=== PATIENT | male | born 1990 | race Caucasian/White ===

== ENCOUNTER 2016-12-11 07:19 | Inpatient (IN) | payer BC ==
[2016-12-11] MEDS ORDERED: SODIUM CHLORIDE 0.9% 500 ML IV STA ×2 (07:50→09:42)
[2016-12-11] MEDS ORDERED: ONDANSETRON 4 MG/2 ML VIAL IVP STA (07:50)
[2016-12-11] MEDS ORDERED: MORPHINE SULFATE 4 MG/ML SYRINGE IV STA (07:50)
[2016-12-11] MEDS: SODIUM CHLORIDE 0.9% 1,000 ML IV STA ×2 (08:01→15:29)
[2016-12-11] MEDS ORDERED: RX INFO: IV CONTRAST WAS GIVEN 1 EACH MISC MISCELLANE PRN (08:18)
[2016-12-11] MEDS ORDERED: AMPICILLIN-SULBACTAM 3 GM in SODIUM CHLORIDE 0.9% 100 ML IVPB STA (08:18)
[2016-12-11 08:20] LABS: Basophils # (A) 0.1 k/uL (0-0.2); Basophils % (A) 1 %; CH 29.3; Eosinophils # (A) 0.2 k/uL (0-0.7); Eosinophils % (A) 1 %; HDW 2.36; HGB 14.6 gm/dL (13.0-17.5); Luc % (Auto) 3; Lymphocytes # (A) 2.3 k/uL (1.0-4.8); Lymphocytes % (A) 17 %; MCH 30.3 pg (25.0-35.0); MCV 89.2 fL (80.0-100.0); Mean Platelet Volume 9.8; Monocytes # (A) 0.9 k/uL (0-1.0); Monocytes % (A) 7 %; Neutrophils # (A) 9.4 k/uL (1.3-7.7); Neutrophils % (A) 71 %; RBC 4.82 m/uL (4.30-5.90); RDW 13.2 % (11.5-15.5); WBC 13.3 k/uL (3.8-10.6); WBC (Perox) 12.56
[2016-12-11 08:31] LABS: ALT 37 U/L (21-72); AST 29 U/L (17-59); Alkaline Phosphatase 75 U/L (38-126); Amylase 44 U/L (30-110); Anion Gap 12 mmol/L; Blood Urea Nitrogen 20 mg/dL (9-20); Calcium 9.4 mg/dL (8.4-10.2); Carbon Dioxide 20 mmol/L (22-30); Chloride 110 mmol/L (98-107); Glucose 99 mg/dL (74-99); Non-African American GFR(MDRD) >60 (>60 ml/min/1.73 sqM); Potassium 5.3 mmol/L (3.5-5.1); Sodium 142 mmol/L (137-145); Total Bilirubin 0.8 mg/dL (0.2-1.3); Total Protein 6.8 g/dL (6.3-8.2)
--- NOTE | 2016-12-11 08:32 | ED ---
General Adult HPI - General Chief complaint: Abdominal Pain Stated complaint: sent Time Seen by Provider: 12/11/16 07:32 Source: patient, RN notes reviewed, old records reviewed Mode of arrival: ambulatory Limitations: no limitations - History of Present Illness Initial comments: This is a 26-year-old male here for evaluation of bowel pain. Severe anterior abdominal pain. About 3 days symbols urgent care and family doctor's office. Scheduled for surgery consult. Patient unsure what causes. No prior history of medical history, no prior surgical history. Patient states he does appear to have drainage from his umbilical area. He states it smells fall, stool, plus. No fevers. He does have significant erythema and redness and warmth surrounding the area - Related Data Home Medications Medication Instructions Recorded Confirmed Clindamycin HCl [Cleocin] 300 mg PO Q6HR 12/11/16 12/11/16 Sulfamethox-Tmp 800-160Mg [Bactrim 1 tab PO Q12HR 12/11/16 12/11/16 DS 800-160 mg] Allergies Allergy/AdvReac Type Severity Reaction Status Date / Time No Known Allergies Allergy Verified 12/11/16 07:27 Review of Systems ROS Statement: Those systems with pertinent positive or pertinent negative responses have been documented in the HPI. ROS Other: All systems not noted in ROS Statement are negative. Past Medical History Past Medical History: No Reported History History of Any Multi-Drug Resistant Organisms: None Reported Past Surgical History: Ear Surgery Past Psychological History: No Psychological Hx Reported Smoking Status: Current every day smoker Past Alcohol Use History: Occasional Past Drug Use History: None Reported General Exam Limitations: no limitations General appearance: alert, in no apparent distress Head exam: Present: atraumatic, normocephalic, normal inspection Eye exam: Present: normal appearance, PERRL, EOMI. Absent: scleral icterus, conjunctival injection, periorbital swelling ENT exam: Present: normal exam, mucous membranes moist Neck exam: Present: normal inspection. Absent: tenderness, meningismus, lymphadenopathy Respiratory exam: Present: normal lung sounds bilaterally. Absent: respiratory distress, wheezes, rales, rhonchi, stridor Cardiovascular Exam: Present: regular rate, normal rhythm, normal heart sounds. Absent: systolic murmur, diastolic murmur, rubs, gallop, clicks GI/Abdominal exam: Present: soft, normal bowel sounds, other (Purulent drainage from abdomen, foul-smelling, surrounding cellulitis with warmth). Absent: distended, tenderness, guarding, rebound, rigid Extremities exam: Present: normal inspection, full ROM, normal capillary refill. Absent: tenderness, pedal edema, joint swelling, calf tenderness Back exam: Present: normal inspection Neurological exam: Present: alert, oriented X3, CN II-XII intact Psychiatric exam: Present: normal affect, normal mood Skin exam: Present: warm, dry, intact, normal color. Absent: rash Course Vital Signs 12/11/16 12/11/16 07:23 09:38 Temperature 97.3 F L 98.3 F Pulse Rate 90 56 L Respiratory 18 17 Rate Blood Pressure 140/77 129/59 O2 Sat by Pulse 100 99 Oximetry - Reevaluation(s) Reevaluation #1: 12/11/16 09:42 General surgery sees patient in emergency room, take patient's operating room Reevaluation #2: 12/11/16 09:42 Patient has adequate pain control at this time. Medical Decision Making - Medical Decision Making 26-year-old year for evaluation of purulent umbilical drainage. Patient to be admitted and taken to operating room regarding infectious hernia, incarcerated hernia. IV antibiotics, pain control, IV resuscitation and surgical treatment - Lab Data Result diagrams: 12/11/16 07:51 12/11/16 07:51 Lab Results 12/11/16 12/11/16 12/11/16 Range/Units 07:51 07:51 07:51 WBC 13.3 H (3.8-10.6) k/uL RBC 4.82 (4.30-5.90) m/uL Hgb 14.6 (13.0-17.5) gm/dL Hct 43.0 (39.0-53.0) % MCV 89.2 (80.0-100.0) fL MCH 30.3 (25.0-35.0) pg MCHC 34.0 (31.0-37.0) g/dL RDW 13.2 (11.5-15.5) % Plt Count 182 (150-450) k/uL Neutrophils % 71 % Lymphocytes % 17 % Monocytes % 7 % Eosinophils % 1 % Basophils % 1 % Neutrophils # 9.4 H (1.3-7.7) k/uL Lymphocytes # 2.3 (1.0-4.8) k/uL Monocytes # 0.9 (0-1.0) k/uL Eosinophils # 0.2 (0-0.7) k/uL Basophils # 0.1 (0-0.2) k/uL Sodium 142 (137-145) mmol/L Potassium 5.3 H (3.5-5.1) mmol/L Chloride 110 H (98-107) mmol/L Carbon Dioxide 20 L (22-30) mmol/L Anion Gap 12 mmol/L BUN 20 (9-20) mg/dL Creatinine 1.12 (0.66-1.25) mg/dL Est GFR (MDRD) Af Amer >60 (>60 ml/min/1.73 sqM) Est GFR (MDRD) Non-Af >60 (>60 ml/min/1.73 sqM) Glucose 99 (74-99) mg/dL Plasma Lactic Acid Marito 1.1 (0.7-2.0) mmol/L Calcium 9.4 (8.4-10.2) mg/dL Total Bilirubin 0.8 (0.2-1.3) mg/dL AST 29 (17-59) U/L ALT 37 (21-72) U/L Alkaline Phosphatase 75 (38-126) U/L Total Protein 6.8 (6.3-8.2) g/dL Albumin 4.0 (3.5-5.0) g/dL Amylase 44 (30-110) U/L Lipase 73 (23-300) U/L Urine Color Urine Appearance (Clear) Urine pH (5.0-8.0) Urine Protein (Negative) Urine Glucose (UA) (Negative) Urine Ketones (Negative) Urine Blood (Negative) Urine Nitrite (Negative) Urine Bilirubin (Negative) Urine Urobilinogen (<2.0) mg/dL Ur Leukocyte Esterase (Negative) 12/11/16 Range/Units 09:30 WBC (3.8-10.6) k/uL RBC (4.30-5.90) m/uL Hgb (13.0-17.5) gm/dL Hct (39.0-53.0) % MCV (80.0-100.0) fL MCH (25.0-35.0) pg MCHC (31.0-37.0) g/dL RDW (11.5-15.5) % Plt Count (150-450) k/uL Neutrophils % % Lymphocytes % % Monocytes % % Eosinophils % % Basophils % % Neutrophils # (1.3-7.7) k/uL Lymphocytes # (1.0-4.8) k/uL Monocytes # (0-1.0) k/uL Eosinophils # (0-0.7) k/uL Basophils # (0-0.2) k/uL Sodium (137-145) mmol/L Potassium (3.5-5.1) mmol/L Chloride (98-107) mmol/L Carbon Dioxide (22-30) mmol/L Anion Gap mmol/L BUN (9-20) mg/dL Creatinine (0.66-1.25) mg/dL Est GFR (MDRD) Af Amer (>60 ml/min/1.73 sqM) Est GFR (MDRD) Non-Af (>60 ml/min/1.73 sqM) Glucose (74-99) mg/dL Plasma Lactic Acid Marito (0.7-2.0) mmol/L Calcium (8.4-10.2) mg/dL Total Bilirubin (0.2-1.3) mg/dL AST (17-59) U/L ALT (21-72) U/L Alkaline Phosphatase (38-126) U/L Total Protein (6.3-8.2) g/dL Albumin (3.5-5.0) g/dL Amylase (30-110) U/L Lipase (23-300) U/L Urine Color Yellow Urine Appearance Clear (Clear) Urine pH 6.0 (5.0-8.0) Urine Protein Negative (Negative) Urine Glucose (UA) Negative (Negative) Urine Ketones Negative (Negative) Urine Blood Negative (Negative) Urine Nitrite Negative (Negative) Urine Bilirubin Negative (Negative) Urine Urobilinogen <2.0 (<2.0) mg/dL Ur Leukocyte Esterase Negative (Negative) - Radiology Data Radiology results: report reviewed (CT pelvis shows positive hernia), image reviewed Disposition Clinical Impression: Hernia with strangulation, Abdominal pain Disposition: ADMITTED IP TO THIS [facility] Condition: Fair Referrals: Fercho Avalos MD [Primary Care Provider] - 1-2 days
--- NOTE | 2016-12-11 09:17 | CT ---
EXAMINATION TYPE: CT abdomen pelvis w con DATE OF EXAM: 12/11/2016 COMPARISON: NONE HISTORY: umbilical hernia CT DLP: 2044.6 mGycm CONTRAST: CT scan of the abdomen and pelvis is performed without Oral Contrast and with IV Contrast, patient in jected with 100 mL of Omnipaque 300. FINDINGS: LUNG BASES-: No visible nodule. No infiltrate. LIVER/GB: No calcified gallstones. No space occupying hepatic lesion. Biliary tree is of normal ca liber. PANCREAS: No inflammation. No distinct mass. SPLEEN: No splenic enlargement. 1.6 cm splenic cyst superior splenic pole. ADRENALS: No nodule. No thickening. KIDNEYS/BLADDER: No hydronephrosis. No nephrolithiasis. No disctinct renal mass. Urinary bladder g rossly unremarkable. BOWEL: Normal appendix. Normal bowel caliber. No inflammation. GENITAL ORGANS: No gross abnormality. LYMPH NODES: No greater than 1cm abdominal or pelvic lymph nodes are appreciated. AORTA: No significant abnormality. OSSEOUS STRUCTURES: No significant abnormality is seen. OTHER: Fat-containing umbilical hernia with internal fluid and phlegmon attenuation with infection no t excluded. Measurement is approximately 5.3 x 4.9 cm There is surrounding inflammatory change. No ev idence for incarcerated bowel. IMPRESSION: 1. Fat-containing umbilical hernia with internal fluid and phlegmon attenuation. There is surrounding inflammatory change. No evidence for incarcerated bowel.
[2016-12-11] MEDS ORDERED: ACETAMINOPHEN IV (For NPO) 1,000 MG in EMPTY BAG 1 BAG IVPB STA (09:36)
[2016-12-11 09:41] LABS: Appearance,Urine Clear (Clear); Bilirubin,Urine Negative (Negative); Glucose,Urine (UA) Negative (Negative); Ketones,Urine Negative (Negative); Leukocyte Esterase,Urine Negative (Negative); Nitrite,Urine Negative (Negative); Protein,Urine Negative (Negative); UA Billing (MACRO vs. MICRO) CHEM; Urobilinogen,Urine <2.0 mg/dL (<2.0)
[2016-12-11] MEDS ORDERED: SODIUM CHLORIDE 0.9% 1,000 ML IV STA (09:42)
[2016-12-11] MEDS ORDERED: IV VANCOMYCIN PER PHARMACY 1 EACH MISC MISCELLANE PRN ×2 (09:42→10:28)
[2016-12-11 09:54] LABS: Specific Gravity,Urine >1.050 (1.001-1.035)
--- NOTE | 2016-12-11 10:03 | P.GSHP ---
History of Present Illness H&P Date: 12/11/16 Chief Complaint: Redness and purulent drainage from the umbilius 26 years old male noticed a bulge in the umbilicus area 4 days ago. He has noticed increased redness and purulent drainage for 1 day. He reports fever. Regular bowel movements. No nausea or vomiting. - Review of Systems Comment: Constitutional: Denies fever, weight loss or loss of appetite HEENT: No difficulty in vision or hearing. Denies dysphagia. Cardiovascular: Denies chest pain, palpitations, dizziness, shortness of breath. Respiratory: No cough or SOB Gastrointestinal: No recent change in bowel habits, no abdominal pain, no nausea or vomiting. Integumentary:Increasing redness and cellulitis of abdominal wall Genitourinary: No urinary incontinence, hematuria or dysuria Neurologic: No seizures, denies weakness in upper or lower extremities Psychiatry: No history of depression, no suicidal ideation, no anxiety or psychosis MSK: No joint pain or backache Past Medical History Past Medical History: No Reported History History of Any Multi-Drug Resistant Organisms: None Reported Past Surgical History: Ear Surgery Past Psychological History: No Psychological Hx Reported Smoking Status: Current every day smoker Past Alcohol Use History: Occasional Past Drug Use History: None Reported Medications and Allergies Home Medications Medication Instructions Recorded Confirmed Type Clindamycin HCl [Cleocin] 300 mg PO Q6HR 12/11/16 12/11/16 History Sulfamethox-Tmp 800-160Mg [Bactrim 1 tab PO Q12HR 12/11/16 12/11/16 History DS 800-160 mg] Allergies Allergy/AdvReac Type Severity Reaction Status Date / Time No Known Allergies Allergy Verified 12/11/16 07:27 Surgical - Exam Vital Signs Temp Pulse Resp BP Pulse Ox 97.3 F L 90 18 140/77 100 12/11/16 07:23 12/11/16 07:23 12/11/16 07:23 12/11/16 07:23 12/11/16 07:23 General: Patient is alert and oriented to time, place and person and cooperative with exam. HEENT: No pallor, no icterus, Chest: Bilateral equal breath sounds present. No wheezes, no crackles. Cardiovascular: Regular rate and rhythm. Abdomen: Cellulitis involving the umbilicus and surrounding abdominal wall. Purulent drainage from the umbilicus with a protuberant bulge. Integumentary: Bilateral lower extremity chronic venous dermatitis. No active ulcers or discharge. Neurologic: Cranial nerves II-XII intact. Strength upper and lower extremities 5/5. No focal neurologic deficits. Gait is normal. Psychiatric: No anxiety or psychosis. Results - Labs 12/11/16 07:51 12/11/16 07:51 Abnormal Lab Results - Last 24 Hours (Table) 12/11/16 12/11/16 12/11/16 Range/Units 07:51 07:51 09:30 WBC 13.3 H (3.8-10.6) k/uL Neutrophils # 9.4 H (1.3-7.7) k/uL Potassium 5.3 H (3.5-5.1) mmol/L Chloride 110 H (98-107) mmol/L Carbon Dioxide 20 L (22-30) mmol/L Ur Specific [place] >1.050 H (1.001-1.035) Diabetes panel 12/11/16 Range/Units 07:51 Sodium 142 (137-145) mmol/L Potassium 5.3 H (3.5-5.1) mmol/L Chloride 110 H (98-107) mmol/L Carbon Dioxide 20 L (22-30) mmol/L BUN 20 (9-20) mg/dL Creatinine 1.12 (0.66-1.25) mg/dL Glucose 99 (74-99) mg/dL Calcium 9.4 (8.4-10.2) mg/dL AST 29 (17-59) U/L ALT 37 (21-72) U/L Alkaline Phosphatase 75 (38-126) U/L Total Protein 6.8 (6.3-8.2) g/dL Albumin 4.0 (3.5-5.0) g/dL Calcium panel 12/11/16 Range/Units 07:51 Calcium 9.4 (8.4-10.2) mg/dL Albumin 4.0 (3.5-5.0) g/dL Pituitary panel 12/11/16 Range/Units 07:51 Sodium 142 (137-145) mmol/L Potassium 5.3 H (3.5-5.1) mmol/L Chloride 110 H (98-107) mmol/L Carbon Dioxide 20 L (22-30) mmol/L BUN 20 (9-20) mg/dL Creatinine 1.12 (0.66-1.25) mg/dL Glucose 99 (74-99) mg/dL Calcium 9.4 (8.4-10.2) mg/dL Adrenal panel 12/11/16 Range/Units 07:51 Sodium 142 (137-145) mmol/L Potassium 5.3 H (3.5-5.1) mmol/L Chloride 110 H (98-107) mmol/L Carbon Dioxide 20 L (22-30) mmol/L BUN 20 (9-20) mg/dL Creatinine 1.12 (0.66-1.25) mg/dL Glucose 99 (74-99) mg/dL Calcium 9.4 (8.4-10.2) mg/dL Total Bilirubin 0.8 (0.2-1.3) mg/dL AST 29 (17-59) U/L ALT 37 (21-72) U/L Alkaline Phosphatase 75 (38-126) U/L Total Protein 6.8 (6.3-8.2) g/dL Albumin 4.0 (3.5-5.0) g/dL - Imaging CT scan - abdomen: other (CT scan of the abdomen and pelvis reviewed. Large fluid collection extending from the umbilicus in the subcutaneous plane. There is a fat-containing umbilical hernia also noted. No communications seen with the bowel however fistula cannot be excluded) Assessment and Plan (1) Abdominal wall cellulitis Status: Acute (2) Incarcerated umbilical hernia Status: Acute (3) Abdominal pain Status: Acute (4) Morbid obesity with BMI of 40.0-44.9, adult Status: Acute Plan: 1. 26 years old male with incarcerated umbilical hernia with surrounding cellulitis and purulent drainage. Patient has leukocytosis at presentation. Informed consent obtained for open exploration, drainage of abdominal wall abscess and repair of umbilical hernia defect without mesh. Since this is an infected area, I would not repair the hernia with mesh. The risks, benefits and potential complications explained to the patient. 2. IV antibiotics-Unasyn and vancomycin 3. Bilateral SCDs 4. Heparin 5000 units subcu injection 1
[2016-12-11] MEDS: ACETAMINOPHEN IV (For NPO) 1,000 MG in EMPTY BAG 1 BAG IVPB STA ×2 (11:05→11:20)
[2016-12-11] MEDS ORDERED: MIDAZOLAM 2 MG/2 ML VIAL ONE (11:27)
[2016-12-11] MEDS ORDERED: HYDROmorphone (PF) 1 MG/ML ONE (11:27)
[2016-12-11] MEDS ORDERED: SUCCINYLCHOLINE CHLORIDE 100 MG/5 ML SYR IV ONE (11:27)
[2016-12-11] MEDS ORDERED: PROPOFOL 10 MG/ML 20 ML VIAL IV ONE (11:27)
[2016-12-11] MEDS ORDERED: fentaNYL (PF) 50 MCG/ML 2 ML AMP ONE (11:27)
[2016-12-11] MEDS: VANCOMYCIN 2,000 MG in SODIUM CHLORIDE 0.9% 500 ML IVPB SCH ×2 (11:55→21:37)
[2016-12-11] MEDS ORDERED: SODIUM CHLORIDE 0.9% 1,000 ML IV ONE (11:55)
--- NOTE | 2016-12-11 12:30 | P.OP ---
Date of Procedure: 12/11/16 Preoperative Diagnosis: Incarcerated umbilical hernia Cellulitis and abscess of anterior abdominal wall Postoperative Diagnosis: Umbilical abscess with cellulitis Procedure(s) Performed: Incision and drainage of deep umbilical abscess. Sharp excisional debridement of necrotic skin and subcutaneous fat in the umbilicus Implants: NA Anesthesia: MIGUELITOA, local Surgeon: Jaylyn Lala Pathology: other Condition: stable Disposition: PACU Indications for Procedure: 26 years old male presents with umbilical bulge with increasing drainage and surrounding redness. Computed tomography scan shows a fat-containing umbilical hernia with subcutaneous fluid collection consistent with abscess. No communication with the bowel. Informed consent obtained and patient elected to undergo open umbilical hernia repair and evacuation of abscess and all indicated procedure. Operative Findings: 4 x 6 x 3 cm abscess cavity in the periumbilical area with foul-smelling purulent pus. The fascia was intact. No definite hernia identified Description of Procedure: The patient was brought to the operating room and placed in supine position with both arms out to anesthesia with endotracheal intubation was performed as per anesthesia team. A timeout was performed to verify correct patient and correct procedure. There was purulent discharge from the umbilicus with surrounding cellulitis. Aerobic and anaerobic cultures were sent. Using #15 scalpel blade, sharp excisional debrident of necrotic skin and subcutaneous tissue was performed.A 4 cm x 3 cm skin incision was made incorporating the umbilicus. This was deepened to the subcu tissues tissue. 10 mL of daniel pus evacuated. Some fresh bleeding noted which was controlled using Bovie electrocautery. There was no umbilical hernia defect identified. There is no bowel visible in the feet. The post debridement measurement was 4 x 6 x 3 cm.The cavity was copiously irrigated with half-strength hydrogen peroxide. Skin jomar were applied except for the proximal part of the incision. Iodoform packing was performed. Patient tolerated the procedure well and was taken to postanesthesia care unit in stable condition. The sponge, instrument and needle count were correct 2
[2016-12-11] MEDS: HEPARIN SODIUM,PORCINE 5,000 UNIT/ML 1 ML VIAL SQ SCH (15:30)
[2016-12-11] MEDS: HYDROmorphone 1 MG/ML 1 ML SYRINGE IVP PRN ×3 (15:30→23:22)
[2016-12-11 15:49] VITALS: BMI 40.3
[2016-12-11] MEDS: AMPICILLIN-SULBACTAM 3 GM in SODIUM CHLORIDE 0.9% 100 ML IVPB SCH (18:00)
[2016-12-12] MEDS: AMPICILLIN-SULBACTAM 3 GM in SODIUM CHLORIDE 0.9% 100 ML IVPB SCH ×4 (00:47→18:52)
[2016-12-12] MEDS: HEPARIN SODIUM,PORCINE 5,000 UNIT/ML 1 ML VIAL SQ SCH ×3 (00:48→17:27)
[2016-12-12] MEDS: HYDROmorphone 1 MG/ML 1 ML SYRINGE IVP PRN ×3 (03:32→12:41)
[2016-12-12 07:31] LABS: Basophils % (A) 1 %; CH 29.3; CHCM 33.1; Eosinophils # (A) 0.1 k/uL (0-0.7); Eosinophils % (A) 1 %; HCT 40.7 % (39.0-53.0); HDW 2.47; HGB 13.6 gm/dL (13.0-17.5); Luc # (Auto) 0.24; Luc % (Auto) 3; Lymphocytes % (A) 22 %; MCH 29.7 pg (25.0-35.0); MCHC 33.4 g/dL (31.0-37.0); MCV 88.7 fL (80.0-100.0); Mean Platelet Volume 9.6; Monocytes # (A) 0.5 k/uL (0-1.0); Monocytes % (A) 5 %; Neutrophils # (A) 6.3 k/uL (1.3-7.7); Neutrophils % (A) 69 %; RBC 4.59 m/uL (4.30-5.90); RDW 13.3 % (11.5-15.5); WBC 9.1 k/uL (3.8-10.6); WBC (Perox) 8.82
[2016-12-12 07:47] LABS: Anion Gap 10 mmol/L; Blood Urea Nitrogen 9 mg/dL (9-20); Calcium 8.8 mg/dL (8.4-10.2); Carbon Dioxide 25 mmol/L (22-30); Chloride 104 mmol/L (98-107); Glucose 86 mg/dL (74-99); Non-African American GFR(MDRD) >60 (>60 ml/min/1.73 sqM); Potassium 4.3 mmol/L (3.5-5.1); Sodium 139 mmol/L (137-145)
[2016-12-12] MEDS: VANCOMYCIN 2,000 MG in SODIUM CHLORIDE 0.9% 500 ML IVPB SCH ×2 (08:22→22:06)
--- NOTE | 2016-12-12 10:06 | P.CONS ---
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 A couple months ago, patient had pain and redness at the area and he was placed on Bactroban and antibiotics and this completely cleared up. On Monday, he was straining at work and didn't think anything of it until Monday when he started having pain in the umbilical area. On Monday, the pain became severe and he went to the clinic and was diagnosed with a yeast infection and put on Diflucan. On , the area had puffed up and was very visible that was abnormality or abscess at the site. On Monday, the pain continued to worsen and he started having yellow crusty drainage. He then called his primary care physician and got into the office and was given [address] Avalos tried to set him up with a surgeon but the earliest appointment was Monday. He was instructed to take 2 antibiotics at home and if he worsened to go to the emergency center. On Monday morning when he got up there was a rancid smell from the area and the yellow drainage has now brown. He came into the emergency center for evaluation. He was found to be afebrile with a white count of 13.3 which has improved to 9.1. Urinalysis was negative. He underwent a CAT scan of the abdomen and pelvis which showed a fat containing umbilical hernia with internal fluid and phlegmon. Patient underwent I&D of a deep umbilical abscess with Dr. Lala yesterday afternoon. He has been placed on Unasyn. He is currently on clear liquid diet. He has not passed gas or had a bowel movement. He has been ambulating in the hallway. Patient states he is uncomfortable with a pain level of 5-6 out of 10. Blood culture, wound cultures and urine culture in progress. Review of Systems All systems: negative Constitutional: Denies chills, Denies fever Eyes: denies blurred vision, denies pain Ears, nose, mouth and throat: Denies headache, Denies sore throat Cardiovascular: Denies chest pain, Denies shortness of breath Respiratory: Denies cough Gastrointestinal: Reports abdominal pain, Denies diarrhea, Denies nausea, Denies vomiting Musculoskeletal: Denies myalgias Integumentary: Reports wounds, Denies pruritus, Denies rash Neurological: Denies numbness, Denies weakness Psychiatric: Denies anxiety, Denies depression Endocrine: Denies fatigue, Denies weight change Past Medical History Past Medical History: No Reported History History of Any Multi-Drug Resistant Organisms: None Reported Past Surgical History: Ear Surgery Past Psychological History: No Psychological Hx Reported Smoking Status: Never smoker Past Alcohol Use History: Occasional Additional Past Alcohol Use History / Comment(s): Patient is a lifelong nonsmoker. He denies any medical marijuana, marijuana, street drug use. He drank alcohol occasionally. He lives at home with his girlfriend and there are 2 dogs and 1 cat and fish in the home. Past Drug Use History: None Reported Medications and Allergies Home Medications Medication Instructions Recorded Confirmed Type Clindamycin HCl [Cleocin] 300 mg PO Q6HR 12/11/16 12/11/16 History Clotrimazole/Betamethasone Dip 1 applic TOPICAL BID 12/11/16 12/11/16 History [Lotrisone Cream] Fluconazole [Diflucan] 200 mg PO Q7D 12/11/16 12/11/16 History Sulfamethox-Tmp 800-160Mg [Bactrim 1 tab PO Q12HR 12/11/16 12/11/16 History DS 800-160 mg] Allergies Allergy/AdvReac Type Severity Reaction Status Date / Time No Known Allergies Allergy Verified 12/11/16 12:23 Physical Exam Vitals: Vital Signs Temp Pulse Pulse Pulse Resp BP BP 12/12/16 04:03 97.9 F 62 16 115/74 12/11/16 19:27 98.1 F 78 16 135/74 12/11/16 17:20 89 18 12/11/16 17:19 98.5 F 89 18 113/87 12/11/16 16:30 64 114/61 12/11/16 16:15 71 119/63 12/11/16 16:00 70 119/62 12/11/16 15:45 65 117/57 12/11/16 15:30 66 119/59 12/11/16 15:15 62 122/63 12/11/16 15:00 70 126/61 12/11/16 14:45 66 122/58 12/11/16 14:30 96.7 F L 72 16 119/56 12/11/16 13:10 82 16 143/87 12/11/16 12:55 85 16 145/87 12/11/16 12:40 99 F 89 16 149/75 12/11/16 10:44 98.6 F 87 18 116/64 12/11/16 10:00 97.8 F 58 L 19 140/61 12/11/16 09:38 98.3 F 56 L 17 129/59 Pulse Ox 12/12/16 04:03 97 12/11/16 19:27 99 12/11/16 17:20 12/11/16 17:19 99 12/11/16 16:30 12/11/16 16:15 12/11/16 16:00 12/11/16 15:45 12/11/16 15:30 12/11/16 15:15 12/11/16 15:00 12/11/16 14:45 12/11/16 14:30 96 12/11/16 13:10 97 12/11/16 12:55 99 12/11/16 12:40 99 12/11/16 10:44 99 12/11/16 10:00 100 12/11/16 09:38 99 Intake and Output 12/11/16 12/12/16 12/12/16 22:59 06:59 14:59 Intake Total 1946 1929 Output Total 800 700 Balance 1147 1230 Intake: Intake, IV Titration 267 600 Amount Ampicillin-Sulbactam 3 gm 100 100 In Sodium Chloride 0.9% 100 ml @ 100 mls/hr IVPB Q6HR SHANN[facility] Rx#:[id number] Vancomycin 2,000 mg In 167 500 Sodium Chloride 0.9% 500 ml @ 167 mls/hr IVPB Q12HR SHANNEN Rx#:[id number] Oral 1680 1330 Output: Urine 800 700 Other: Voiding Method Toilet # Voids 3 1 1 Weight 127.459 kg Gen: This is a morbidly obese 26-year-old male. He is sitting up in bed and appears to be comfortable. HEENT: Head is atraumatic, normocephalic. Pupils equal, round. Sclerae is anicteric. Conjunctiva pink. Mucous membranes of the mouth are slightly dry. No thrush noted. NECK: Supple. No JVD. No lymphadenopathy. No thyromegaly. LUNGS: Clear to auscultation. No wheezes or rhonchi. No intercostal retractions. HEART: Regular rate and rhythm. No murmur. ABDOMEN: Soft. Bowel sounds are present. No masses. Mild tenderness. A dressing saturated with serosanguineous fluid in the mid abdomen. There is surrounding erythema going towards the right groin. EXTREMITIES: No pedal edema. No calf tenderness. NEUROLOGICAL: Patient is awake, alert and oriented x3. Cranial nerves 2 through 12 are grossly intact. Results Results: Laboratory Results WBC 9.1 k/uL (3.8-10.6) 12/12/16 07:08 RBC 4.59 m/uL (4.30-5.90) 12/12/16 07:08 Hgb 13.6 gm/dL (13.0-17.5) 12/12/16 07:08 Hct 40.7 % (39.0-53.0) 12/12/16 07:08 MCV 88.7 fL (80.0-100.0) 12/12/16 07:08 MCH 29.7 pg (25.0-35.0) 12/12/16 07:08 MCHC 33.4 g/dL (31.0-37.0) 12/12/16 07:08 RDW 13.3 % (11.5-15.5) 12/12/16 07:08 Plt Count 174 k/uL (150-450) 12/12/16 07:08 Neutrophils % 69 % 12/12/16 07:08 Lymphocytes % 22 % 12/12/16 07:08 Monocytes % 5 % 12/12/16 07:08 Eosinophils % 1 % 12/12/16 07:08 Basophils % 1 % 12/12/16 07:08 Neutrophils # 6.3 k/uL (1.3-7.7) 12/12/16 07:08 Lymphocytes # 2.0 k/uL (1.0-4.8) 12/12/16 07:08 Monocytes # 0.5 k/uL (0-1.0) 12/12/16 07:08 Eosinophils # 0.1 k/uL (0-0.7) 12/12/16 07:08 Basophils # 0.0 k/uL (0-0.2) 12/12/16 07:08 Sodium 139 mmol/L (137-145) 12/12/16 07:08 Potassium 4.3 mmol/L (3.5-5.1) 12/12/16 07:08 Chloride 104 mmol/L (98-107) 12/12/16 07:08 Carbon Dioxide 25 mmol/L (22-30) 12/12/16 07:08 Anion Gap 10 mmol/L 12/12/16 07:08 BUN 9 mg/dL (9-20) 12/12/16 07:08 Creatinine 0.96 mg/dL (0.66-1.25) 12/12/16 07:08 Est GFR (MDRD) Af Amer >60 (>60 ml/min/1.73 sqM) 12/12/16 07:08 Est GFR (MDRD) Non-Af >60 (>60 ml/min/1.73 sqM) 12/12/16 07:08 Glucose 86 mg/dL (74-99) 12/12/16 07:08 Plasma Lactic Acid Marito 1.1 mmol/L (0.7-2.0) 12/11/16 07:51 Calcium 8.8 mg/dL (8.4-10.2) 12/12/16 07:08 Total Bilirubin 0.8 mg/dL (0.2-1.3) 12/11/16 07:51 AST 29 U/L (17-59) 12/11/16 07:51 ALT 37 U/L (21-72) 12/11/16 07:51 Alkaline Phosphatase 75 U/L (38-126) 12/11/16 07:51 Total Protein 6.8 g/dL (6.3-8.2) 12/11/16 07:51 Albumin 4.0 g/dL (3.5-5.0) 12/11/16 07:51 Amylase 44 U/L (30-110) 12/11/16 07:51 Lipase 73 U/L (23-300) 12/11/16 07:51 Urine Color Yellow 12/11/16 09:30 Urine Appearance Clear (Clear) 12/11/16 09:30 Urine pH 6.0 (5.0-8.0) 12/11/16 09:30 Ur Specific [place] >1.050 (1.001-1.035) H 12/11/16 09:30 Urine Protein Negative (Negative) 12/11/16 09:30 Urine Glucose (UA) Negative (Negative) 12/11/16 09:30 Urine Ketones Negative (Negative) 12/11/16 09:30 Urine Blood Negative (Negative) 12/11/16 09:30 Urine Nitrite Negative (Negative) 12/11/16 09:30 Urine Bilirubin Negative (Negative) 12/11/16 09:30 Urine Urobilinogen <2.0 mg/dL (<2.0) 12/11/16 09:30 Ur Leukocyte Esterase Negative (Negative) 12/11/16 09:30 CBC & Chem 7: 12/12/16 07:08 12/13/16 07:30 Labs: Abnormal Lab Results - Last 24 Hours (Table) 12/11/16 Range/Units 09:30 Ur Specific [place] >1.050 H (1.001-1.035) Microbiology - Last 24 Hours (Table) 12/11/16 12:18 Gram Stain - Preliminary Abdomen Wound Culture - Preliminary 12/11/16 12:18 Gram Stain - Preliminary Abdomen Wound Culture - Preliminary 12/11/16 09:30 Urine Culture - Preliminary Urine,Voided 12/11/16 12:18 Anaerobic Culture - Preliminary Abdomen 12/11/16 12:18 Anaerobic Culture - Preliminary Abdomen Assessment and Plan Plan: This is a 26-year-old male who presented to the hospital with umbilical abscess and cellulitis status post I&D. Patient is currently on Unasyn which will be continued and plan for Augmentin at the time of discharge. Cultures are all in progress. We will ask for incentive spirometry. Continue supportive care. Further recommendations as patient progresses. The above dictated assessment and findings were discussed with Dr. Grissom. The impression and plan of care have been directed as dictated. Radha Song nurse practitioner acting as scribe for Dr. Grissom.
--- NOTE | 2016-12-12 16:16 | P.PN ---
Subjective Principal diagnosis: Umbilical abscess S/P incision and drainage of umbilical abscess - purulent drainage and no umbilical hernia. Pain is fairly controlled. Packing removed at bedside. Serosanguinous fluid drained. Currently on IV Unasyn and Vanco Objective - Vital Signs Vital signs: Vital Signs Temp 98.1 F 12/12/16 13:58 Pulse 69 12/12/16 13:58 Resp 18 12/12/16 13:58 BP 115/59 12/12/16 13:58 Pulse Ox 96 12/12/16 13:58 Intake & Output 12/11/16 12/12/16 12/12/16 18:59 06:59 18:59 Intake Total 2417 3010 Output Total 720 1400 Balance 1697 1610 Weight 127.459 kg Intake: IV 1550 Intake, IV Titration 267 600 Amount Ampicillin-Sulbactam 3 gm 100 100 In Sodium Chloride 0.9% 100 ml @ 100 mls/hr IVPB Q6HR [facility] Rx#:[id number] Vancomycin 2,000 mg In 167 500 Sodium Chloride 0.9% 500 ml @ 167 mls/hr IVPB Q12HR [facility]ANN[facility] Rx#:[id number] Oral 600 2410 Output: Urine 700 1400 Estimated Blood Loss 20 Other: Voiding Method Toilet # Voids 3 1 1 - Exam VSS,afebrile Incision- packin removed . Cellulitis resolving - Labs CBC & Chem 7: 12/12/16 07:08 12/12/16 07:08 Labs: Microbiology - Last 24 Hours (Table) 12/11/16 07:51 Blood Culture - Preliminary Blood No Growth after 24 hours 12/11/16 12:18 Gram Stain - Preliminary Abdomen Wound Culture - Preliminary 12/11/16 12:18 Gram Stain - Preliminary Abdomen Wound Culture - Preliminary 12/11/16 09:30 Urine Culture - Preliminary Urine,Voided 12/11/16 12:18 Anaerobic Culture - Preliminary Abdomen 12/11/16 12:18 Anaerobic Culture - Preliminary Abdomen Assessment and Plan (1) Abdominal wall cellulitis Status: Acute (2) Abdominal pain Status: Acute (3) Morbid obesity with BMI of 40.0-44.9, adult Status: Acute Plan: 1. Regular diet 2. Oral pain meds 3. Cultures pending. Gm stain showed few Gm positive cocci and bacilli 4. O to shower 5. Pack with aquacel silver
[2016-12-12] MEDS: HYDROcodone/APAP 5-325MG 1 EACH TAB PO PRN ×2 (16:32→23:16)
--- NOTE | 2016-12-12 22:26 | P.CON ---
Consult Note - . 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 A couple months ago, patient had pain and redness at the area and he was placed on Bactroban and antibiotics and this completely cleared up. On Monday, he was straining at work and didn't think anything of it until Monday when he started having pain in the umbilical area. On Monday, the pain became severe and he went to the clinic and was diagnosed with a yeast infection and put on Diflucan. On , the area had puffed up and was very visible that was abnormality or abscess at the site. On Monday, the pain continued to worsen and he started having yellow crusty drainage. He then called his primary care physician and got into the office and was given [address] Avalos tried to set him up with a surgeon but the earliest appointment was Monday. He was instructed to take 2 antibiotics at home and if he worsened to go to the emergency center. On Monday morning when he got up there was a rancid smell from the area and the yellow drainage has now brown. He came into the emergency center for evaluation. He was found to be afebrile with a white count of 13.3 which has improved to 9.1. Urinalysis was negative. He underwent a CAT scan of the abdomen and pelvis which showed a fat containing umbilical hernia with internal fluid and phlegmon. Patient underwent I&D of a deep umbilical abscess with Dr. Lala yesterday afternoon. He has been placed on Unasyn. He is currently on clear liquid diet. He has not passed gas or had a bowel movement. He has been ambulating in the hallway. Patient states he is uncomfortable with a pain level of 5-6 out of 10. Blood culture, wound cultures and urine culture in progress. Please see the consult note is dictated by nurse practitioner Radha Nielsonyari. Pleasant young man has had difficulty with his umbilicus over some time. He likely has developed a recurrent abscess at the site and developed a significant cellulitis also. he is now status post incision and drainage. Now showing a marked improvement. Packing of the site with Aquacel silver rope will be helpful and can utilize home care to help. Likely be discharged home tomorrow. Given the location likely a partial anaerobic infection no evidence of MRSA. Oral Augmentin will be inadequate oral choice for home. Happy to follow in the wound healing Center. He is very anxious about his paperwork for his [employer]. Suggested that we can help him with that as possible. I agree with evaluation, assessment and plan as dictated by nurse practitioner Mrs. Radha Song.
[2016-12-13] MEDS: HEPARIN SODIUM,PORCINE 5,000 UNIT/ML 1 ML VIAL SQ SCH ×2 (01:38→09:36)
[2016-12-13] MEDS: AMPICILLIN-SULBACTAM 3 GM in SODIUM CHLORIDE 0.9% 100 ML IVPB SCH ×2 (01:38→06:17)
[2016-12-13] MEDS ORDERED: VANCOMYCIN TROUGH DUE 1 EACH MISC MISCELLANE ONE (08:00)
[2016-12-13 08:13] LABS: Anion Gap 9 mmol/L; Blood Urea Nitrogen 10 mg/dL (9-20); Calcium 9.1 mg/dL (8.4-10.2); Carbon Dioxide 28 mmol/L (22-30); Chloride 105 mmol/L (98-107); Glucose 91 mg/dL (74-99); Non-African American GFR(MDRD) >60 (>60 ml/min/1.73 sqM); Potassium 4.7 mmol/L (3.5-5.1); Sodium 142 mmol/L (137-145)
[2016-12-13] MEDS: VANCOMYCIN 2,000 MG in SODIUM CHLORIDE 0.9% 500 ML IVPB SCH (09:36)
[2016-12-13 09:59] VITALS: BP 133/70; PULSE 59; RESP 14; TEMP 98
[2016-12-13] MEDS ORDERED: MULTIVITAMINS, THERA 1 EACH TAB PO SCH (12:00)
--- NOTE | 2016-12-16 07:45 | CDI ---
In responding to this query, please exercise your independent professional judgment. The [facility] Coding Staff and Clinical Documentation Specialists appreciate your assistance in clarifying documentation, maintaining compliance with coding guidelines, accurately documenting patients condition and capturing severity of illness. The fact that a question is asked does not imply that any particular answer is desired or expected. Communication forms are a method of clarifying documentation and are not made part of the Legal Health Record. Thank you in advance for your clarification. Last Revision, March 2015 Date: 12/16/2016 7:35:00 AM From: MAGGY Parikh; Maryan Crenshaw Project Management Professor Admit Date: 12/11/2016 9:43:00 AM Patient Name: Fab Mario Visit Number: [id number] Discharge Date: Dr. Jaylyn Lala Per your operative note, an I&D of abdominal wall was performed. Necrotic skin of the umbillicus was debrided. Five elements required for accurate and compliant documentation of a debridement : 1. Technique used (e.g., excisional, excised, cutting, etc.) 2. Instrument(s) used (e.g., scalpel, curette, etc.) 3. Nature of the tissue removed (e.g., necrotic, devitalized tissues, non- viable tissue, etc.) 4. Appearance and size of the wound (e.g., down to fresh bleeding tissue, 7cm x 10cm, etc.) 5. Depth of the debridement* (e.g., skin, subcutaneous tissue, fascia, muscle , bone, etc.) In order to capture the severity of condition and code the appropriate procedure could you please document the following: Excisional debridement (the removal of necrotic, devitalized tissue or slough by means of cutting away of tissue) Non-excisional debridement (the removal of necrotic, devitalized tissue or slough by means of flushing, brushing, or washing. (Irrigation) Other; with explanation for clinical findings Unable to determine (no explanation for clinical findings) Please document an addendum to the operative note to capture severity of illness and risk of mortality. Include clinical findings that support your diagnosis. If you have a question about this query, please contact Maryan Crenshaw Project Management Professor at [phone] between 8am and 5pm. MTDD
--- NOTE | 2016-12-19 12:13 | P.DS ---
Providers Date of admission: 12/11/16 09:43 Expected date of discharge: 12/15/16 Attending physician: Jaylyn Lala Consults: 12/11/16 10:08 Consult Physician Routine Consulting Provider: Jevon Grissom Consult Reason/Comments: abdominal wall infection/ abx management Do you want consulting provider notified?: Yes Primary care physician: Fercho Avalos - Discharge Diagnosis(es) (1) Abdominal wall cellulitis Status: Acute (2) Abdominal pain Status: Acute (3) Morbid obesity with BMI of 40.0-44.9, adult Status: Acute Hospital Course: 26 years old male presenting with draining pus from umbilical hernia with surrounding cellulitis. There was initial concern for incarcerated umbilical hernia. However after surgical expiration, drainage of umbilical abscess and sharp excisional debridement of skin, subcutaneous tissue , no definite hernia defect was identified. The wound was left open and packed with iodoform gauze. He was treated with IV antibiotics and discharged home on oral antibiotics with wound care instructions Patient Condition at Discharge: Fair Plan - Discharge Summary New Discharge Prescriptions: New Docusate [Colace] 100 mg PO BID #30 capsule Hydrocodone/Acetaminophen [[place] 5-325] 1 each PO Q6HR PRN #20 tab PRN Reason: Pain Amoxicillin/Potassium Clav [Augmentin 875-125 Tablet] 1 each PO Q12HR #14 tab Discontinued Sulfamethox-Tmp 800-160Mg [Bactrim DS 800-160 mg] 1 tab PO Q12HR Clindamycin HCl [Cleocin] 300 mg PO Q6HR Fluconazole [Diflucan] 200 mg PO Q7D No Action Clotrimazole/Betamethasone Dip [Lotrisone Cream] 1 applic TOPICAL BID Discharge Medication List Clotrimazole/Betamethasone Dip [Lotrisone Cream] 1 applic TOPICAL BID 12/11/16 [ History] Docusate [Colace] 100 mg PO BID #30 capsule 12/11/16 [Rx] Hydrocodone/Acetaminophen [[place] 5-325] 1 each PO Q6HR PRN #20 tab 12/11/16 [Rx] Amoxicillin/Potassium Clav [Augmentin 875-125 Tablet] 1 each PO Q12HR #14 tab [Rx] Follow up Appointment(s)/Referral(s): Jaylyn Lala MD [STAFF PHYSICIAN] - 12/20/16 Fercho Avalos MD [Primary Care Provider] - 1-2 days Activity/Diet/Wound Care/Special Instructions: OK to shower . No soaking bath. No heavy lifting more than 10 lbs for 6 weeks post surgery. No driving while taking narcotics for pain. May use ice packs for local pain relief Take Motrin 600 mg po TID after meals if pain is not controlled Use incentive spirometry 10 times an hour while awake [facility] Care: [phone] Discharge Disposition: HOME SELF-CARE
== END 2016-12-13 14:35 | disposition home or self-care (01) | DRG 571 ==
LOC: EC 07:19 → 3SUR 09:43
PROVIDERS: ADMIT Surgery; ATTEND Surgery
PROC: 0JB80ZZ Excision of Abdomen Subcutaneous Tissue and Fascia, Open Approach (ICD-10-PCS; principal; 2016-12-11 10:30)
PROC: 0J980ZZ Drainage of Abdomen Subcutaneous Tissue and Fascia, Open Approach (ICD-10-PCS; principal; 2016-12-11 10:30)
DX: L03.311 Cellulitis of abdominal wall (principal); K42.0 Umbilical hernia with obstruction, without gangrene; Z68.41 Body mass index [BMI] 40.0-44.9, adult; E66.01 Morbid (severe) obesity due to excess calories; B37.9 Candidiasis, unspecified; F17.200 Nicotine dependence, unspecified, uncomplicated; L02.216 Cutaneous abscess of umbilicus
CPT/HCPCS: 36415; 74177; 80048; 80053; 80202; 81003; 82150; 83605; 83690; 85025; 87040; 87070; 87075; 87077; 87086; 87186; 87205; 96360; 96361; 99285

== ENCOUNTER 2018-05-28 18:28 | Observation (INO) | payer BC ==
[2018-05-28 19:57] LABS: Basophils % (A) 0 %; Eosinophils # (A) 0.1 k/uL (0-0.7); Eosinophils % (A) 1 %; HCT 40.2 % (39.0-53.0); HGB 14.1 gm/dL (13.0-17.5); Lymphocytes # (A) 2.3 k/uL (1.0-4.8); Lymphocytes % (A) 20 %; MCH 30.8 pg (25.0-35.0); MCV 88.1 fL (80.0-100.0); Mean Platelet Volume 8.5; Monocytes # (A) 0.7 k/uL (0-1.0); Monocytes % (A) 6 %; Neutrophils # (A) 7.7 k/uL (1.3-7.7); Neutrophils % (A) 70 %; Platelet Count 155 k/uL (150-450); RBC 4.57 m/uL (4.30-5.90); RDW 13.1 % (11.5-15.5)
[2018-05-28 20:06] LABS: ALT 53 U/L (21-72); AST 52 U/L (17-59); Albumin 4.4 g/dL (3.5-5.0); Alkaline Phosphatase 61 U/L (38-126); Amylase 52 U/L (30-110); Anion Gap 8 mmol/L; Blood Urea Nitrogen 14 mg/dL (9-20); Calcium 9.3 mg/dL (8.4-10.2); Carbon Dioxide 27 mmol/L (22-30); Chloride 105 mmol/L (98-107); Glucose 87 mg/dL (74-99); Lipase 84 U/L (23-300); Potassium 4.3 mmol/L (3.5-5.1); Sodium 140 mmol/L (137-145); Total Bilirubin 2.5 mg/dL (0.2-1.3); Total Protein 7.1 g/dL (6.3-8.2)
[2018-05-28 20:24] LABS: Appearance,Urine Clear (Clear); Bilirubin,Urine Negative (Negative); Blood,Urine Negative (Negative); Color,Urine Yellow; Glucose,Urine (UA) Negative (Negative); Ketones,Urine Trace (Negative); Leukocyte Esterase,Urine Negative (Negative); Nitrite,Urine Negative (Negative); PH, Urine 5.5 (5.0-8.0); Protein,Urine Trace (Negative); Specific Gravity,Urine 1.021 (1.001-1.035); Urobilinogen,Urine <2.0 mg/dL (<2.0)
[2018-05-28] MEDS ORDERED: ONDANSETRON 4 MG/2 ML VIAL IVP STA (20:33)
[2018-05-28] MEDS ORDERED: MORPHINE SULFATE 4 MG/ML SYRINGE IVP STA (20:33)
[2018-05-28] MEDS ORDERED: SODIUM CHLORIDE 0.9% 1,000 ML IV ONE (20:33)
--- NOTE | 2018-05-28 21:24 | CT ---
EXAMINATION TYPE: CT abdomen pelvis w con DATE OF EXAM: 05/28/2018 COMPARISON: CT abdomen and pelvis December 11, 2016 HISTORY: RLQ pain CT DLP: 1707.4 mGycm, Automated Exposure Control for Dose Reduction was Utilized. CONTRAST: CT scan of the abdomen and pelvis is performed without oral but with IV Contrast, patient injected wi th 100 mL of Isovue 300. FINDINGS: LUNG BASES: No significant abnormality is appreciated. LIVER/GB: Liver is diffusely low dense relative to spleen suggesting fatty infiltration.. PANCREAS: No significant abnormality is seen. SPLEEN: No significant abnormality is seen. ADRENALS: No significant abnormality is seen. KIDNEYS: No significant abnormality is seen. BOWEL: Evaluation of bowel is suboptimal secondary to lack of enteric contrast. There is no suspiciou s small or large bowel dilatation. Slightly prominent fluid-filled small bowel loops in the left mid to lower abdomen are present. Appendix appears abnormal measuring up to 8 mm in thickness with mucosa l thickening and poor definition, there is mild inflammatory change and trace fluid in the right infr acolic gutter. CT findings suggest a mild acute appendicitis. No free air is present. No well-formed fluid collection is seen. PROSTATE/SEMINAL VESICLES: No gross abnormality seen. LYMPH NODES: No greater than 1cm abdominal or pelvic lymph nodes are appreciated. OSSEOUS STRUCTURES: No significant abnormality is seen. OTHER: Tiny fat-containing umbilical hernia axial Image 49 is redemonstrated.. IMPRESSION: CT findings consistent with mild or early acute appendicitis as detailed above. Critical results communicated to ordering emergency room physician event marketing assistant via telephone at time of dictation.
--- NOTE | 2018-05-28 21:29 | ED ---
Abdominal Pain HPI - General Source: patient Mode of arrival: ambulatory Limitations: no limitations <Dori Torres - Last Filed: 05/28/18 21:57> <Eryn Connelly - Last Filed: 05/29/18 09:50> - General Chief Complaint: Abdominal Pain Stated Complaint: Abd Pain Time Seen by Provider: 05/28/18 20:20 - History of Present Illness Initial Comments: 28-year-old male patient presents to the emergency department today for evaluation of right lower quadrant abdominal pain. Patient states that pain started around 8 PM yesterday evening and has been progressively worsening since its onset. Patient states she's had decreased appetite today. States he did have one loose bowel movement this morning. He denies any fevers or chills with this. Patient states he is having some pain radiating into the right upper quadrant as well. He denies any radiation of the pain to his back. States that pain is somewhat relieved when he urinates. Denies any hematuria, dysuria, urinary frequency, urinary urgency. Denies any hematochezia, melena, or hematemesis. Patient denies any recent rash, shortness breath, chest pain, back pain, numbness, tingling, dizziness, weakness, headache, visual changes, or any other complaints. (Dori Torres) - Related Data Home Medications Medication Instructions Recorded Confirmed Multivitamins, Thera [Multivitamin 1 tab PO DAILY 12/23/16 05/28/18 (formulary)] Aspirin [[place] Aspirin EC] 81 mg PO DAILY 05/28/18 05/28/18 Cholecalciferol (Vitamin D3) 2,000 mg PO DAILY 05/28/18 05/28/18 [Vitamin D3] Allergies Allergy/AdvReac Type Severity Reaction Status Date / Time No Known Allergies Allergy Verified 05/28/18 21:57 Review of Systems ROS Other: All systems not noted in ROS Statement are negative. <Dori Torres - Last Filed: 05/28/18 21:57> ROS Other: All systems not noted in ROS Statement are negative. <Eryn Connelly - Last Filed: 05/29/18 09:50> ROS Statement: Those systems with pertinent positive or pertinent negative responses have been documented in the HPI. Past Medical History Past Medical History: Skin Disorder Additional Past Medical History / Comment(s): current wound near umbilicus that is packed QOD, hx of scarlet fever in high school History of Any Multi-Drug Resistant Organisms: None Reported Past Surgical History: Ear Surgery Additional Past Surgical History / Comment(s): tubes in ear as infant, I&D to umbilical wound Past Anesthesia/Blood Transfusion Reactions: No Reported Reaction Past Psychological History: No Psychological Hx Reported Smoking Status: Never smoker Past Alcohol Use History: Occasional Past Drug Use History: None Reported - Past Family History Mother Family Medical History: No Reported History <Dori Torres M - Last Filed: 05/28/18 21:57> General Exam Limitations: no limitations General appearance: alert, in no apparent distress, other (Some well-developed, well-nourished adult male patient in no acute distress. Vital signs upon presentation are temperature 98.8F, pulse 79, respirations 16, blood pressure 176/86, pulse ox 97% on room air.) Eye exam: Present: normal appearance, PERRL, EOMI. Absent: scleral icterus, conjunctival injection, periorbital swelling ENT exam: Present: normal exam, normal oropharynx, mucous membranes moist Respiratory exam: Present: normal lung sounds bilaterally. Absent: respiratory distress, wheezes, rales, rhonchi, stridor Cardiovascular Exam: Present: regular rate, normal rhythm, normal heart sounds. Absent: systolic murmur, diastolic murmur, rubs, gallop, clicks GI/Abdominal exam: Present: soft, tenderness (Right lower quadrant tenderness, right upper quadrant tenderness), normal bowel sounds. Absent: distended, guarding, rebound, rigid Back exam: Present: normal inspection. Absent: CVA tenderness (R), CVA tenderness (L) Neurological exam: Present: alert, oriented X3, CN II-XII intact Psychiatric exam: Present: normal affect, normal mood Skin exam: Present: warm, dry, intact, normal color. Absent: rash <Dori Torres - Last Filed: 05/28/18 21:57> Vital Signs 05/28/18 05/28/18 05/28/18 18:57 22:00 23:00 Temperature 98.8 F 98.5 F 98.4 F Pulse Rate 79 76 78 Respiratory 16 20 18 Rate Blood Pressure 176/86 159/79 144/74 O2 Sat by Pulse 97 97 98 Oximetry 05/29/18 00:00 Temperature 98.3 F Pulse Rate 76 Respiratory 18 Rate Blood Pressure 143/73 O2 Sat by Pulse 98 Oximetry Medical Decision Making - Lab Data Result diagrams: 05/28/18 19:44 05/28/18 19:44 - Radiology Data Radiology results: report reviewed, image reviewed <Dori Torres - Last Filed: 05/28/18 21:57> - Lab Data Result diagrams: 05/28/18 19:44 05/28/18 19:44 <Eryn Connelly - Last Filed: 05/29/18 09:50> - Medical Decision Making 28-year-old male patient presents to emergency department today for evaluation of right lower quadrant abdominal pain that started at 8 PM last evening. Physical examination did reveal right lower quadrant and right upper quadrant abdominal tenderness. Labs reviewed and did reveal elevated white blood cell count at 11.0. Patient's CT findings and physical exam findings are consistent with acute appendicitis. We'll start Zosyn. He'll be admitted to the hospital for surgery in the morning. Dr. Bauman is accepting. (Dori Torres) Saw patient, patient resting comfortably reports only has pain with movement or palpation. Labs and imaging reviewed. Patient care was discussed with surgeon transportation supervisor Dr. Bauman who accepts admission, recommend Zosyn, Zofran PRN, Morphine PRN, NPO (Eryn Connelly) - Lab Data Lab Results 05/28/18 05/28/18 05/28/18 Range/Units 19:44 19:44 19:44 WBC 11.0 H (3.8-10.6) k/uL RBC 4.57 (4.30-5.90) m/uL Hgb 14.1 (13.0-17.5) gm/dL Hct 40.2 (39.0-53.0) % MCV 88.1 (80.0-100.0) fL MCH 30.8 (25.0-35.0) pg MCHC 35.0 (31.0-37.0) g/dL RDW 13.1 (11.5-15.5) % Plt Count 155 (150-450) k/uL Neutrophils % 70 % Lymphocytes % 20 % Monocytes % 6 % Eosinophils % 1 % Basophils % 0 % Neutrophils # 7.7 (1.3-7.7) k/uL Lymphocytes # 2.3 (1.0-4.8) k/uL Monocytes # 0.7 (0-1.0) k/uL Eosinophils # 0.1 (0-0.7) k/uL Basophils # 0.0 (0-0.2) k/uL Sodium 140 (137-145) mmol/L Potassium 4.3 (3.5-5.1) mmol/L Chloride 105 (98-107) mmol/L Carbon Dioxide 27 (22-30) mmol/L Anion Gap 8 mmol/L BUN 14 (9-20) mg/dL Creatinine 0.98 (0.66-1.25) mg/dL Est GFR (CKD-EPI)AfAm >90 (>60 ml/min/1.73 sqM) Est GFR (CKD-EPI)NonAf >90 (>60 ml/min/1.73 sqM) Glucose 87 (74-99) mg/dL Calcium 9.3 (8.4-10.2) mg/dL Total Bilirubin 2.5 H (0.2-1.3) mg/dL AST 52 (17-59) U/L ALT 53 (21-72) U/L Alkaline Phosphatase 61 (38-126) U/L Total Protein 7.1 (6.3-8.2) g/dL Albumin 4.4 (3.5-5.0) g/dL Amylase 52 (30-110) U/L Lipase 84 (23-300) U/L Urine Color Yellow Urine Appearance Clear (Clear) Urine pH 5.5 (5.0-8.0) Ur Specific [place] 1.021 (1.001-1.035) Urine Protein Trace H (Negative) Urine Glucose (UA) Negative (Negative) Urine Ketones Trace H (Negative) Urine Blood Negative (Negative) Urine Nitrite Negative (Negative) Urine Bilirubin Negative (Negative) Urine Urobilinogen <2.0 (<2.0) mg/dL Ur Leukocyte Esterase Negative (Negative) - Radiology Data CT abdomen and pelvis with contrast was obtained. Report was reviewed in its entirety. There is a slightly prominent fluid filled small bowel loops in the left mid to lower abdomen. Appendix appears abnormal measuring up to 8 L in thickness with mucosal thickening a poor definition. There is mild inflammatory change and trace fluid in the right infracolic gutter. CT findings suggest mild acute appendicitis. No free air. No well-formed fluid collection. (Dori Torres) Disposition Decision to Admit Reason: Admit from EC Decision Date: 05/28/18 Decision Time: 21:58 <Dori Torres - Last Filed: 05/28/18 21:57> <Eryn Connelly - Last Filed: 05/29/18 09:50> Clinical Impression: Acute appendicitis Disposition: ADMITTED IP TO THIS HOSP Condition: Serious
[2018-05-28] MEDS ORDERED: PIPERACILLIN-TAZOBACTAM 3.375 GM in SODIUM CHLORIDE 0.9% 100 ML IVPB STA (21:33)
[2018-05-28] MEDS ORDERED: ONDANSETRON 4 MG/2 ML VIAL IVP PRN (21:33)
[2018-05-28] MEDS ORDERED: NALOXONE 0.4 MG/ML 1 ML VIAL IV PRN (21:33)
[2018-05-28] MEDS: SODIUM CHLORIDE 0.9% 1,000 ML IV SCH (21:49)
[2018-05-28] MEDS ORDERED: PIPERACILLIN-TAZOBACTAM 3.375 GM in SODIUM CHLORIDE 0.9% 100 ML IVPB SCH (22:00)
[2018-05-29] MEDS: MORPHINE SULFATE 4 MG/ML SYRINGE IV PRN ×3 (01:57→10:56)
[2018-05-29] MEDS: SODIUM CHLORIDE 0.9% 1,000 ML IV SCH ×2 (07:34→16:17)
[2018-05-29] MEDS: PIPERACILLIN-TAZOBACTAM 3.375 GM in SODIUM CHLORIDE 0.9% 100 ML IVPB SCH ×2 (09:25→17:35)
[2018-05-29] MEDS ORDERED: IV FLUID CONTINUATION 950 ML IV ONE (11:12)
[2018-05-29] MEDS ORDERED: IV FLUID CONTINUATION 600 ML IV ONE (11:12)
[2018-05-29] MEDS ORDERED: ONDANSETRON 4 MG/2 ML VIAL IVP ONE (11:43)
[2018-05-29] MEDS ORDERED: DEXAMETHASONE SOD PHOSPHATE 10 MG/ML 1 ML VIAL IV ONE (11:44)
[2018-05-29] MEDS ORDERED: HEPARIN SODIUM,PORCINE 5,000 UNIT/ML 1 ML VIAL SQ ONE (11:45)
--- NOTE | 2018-05-29 11:53 | P.GSHP ---
History of Present Illness H&P Date: 05/29/18 Chief Complaint: Right lower quadrant pain This a 28-year-old male who's had complaints of right lower quadrant pain since Monday. Patient presents to the emergency room last night. He is worked up found have evidence of appendicitis. Past Medical History Past Medical History: Skin Disorder Additional Past Medical History / Comment(s): current wound near umbilicus that is packed QOD, hx of scarlet fever in high school. right broken ankle History of Any Multi-Drug Resistant Organisms: None Reported Past Surgical History: Ear Surgery Additional Past Surgical History / Comment(s): tubes in ear as infant, I&D to umbilical wound Past Anesthesia/Blood Transfusion Reactions: No Reported Reaction Past Psychological History: No Psychological Hx Reported Smoking Status: Never smoker Past Alcohol Use History: Occasional Additional Past Alcohol Use History / Comment(s): . Past Drug Use History: None Reported - Past Family History Mother Family Medical History: No Reported History Medications and Allergies Home Medications Medication Instructions Recorded Confirmed Type Multivitamins, Thera [Multivitamin 1 tab PO DAILY 12/23/16 05/28/18 History (formulary)] Aspirin [[place] Aspirin EC] 81 mg PO DAILY 05/28/18 05/28/18 History Cholecalciferol (Vitamin D3) 2,000 mg PO DAILY 05/28/18 05/28/18 History [Vitamin D3] Allergies Allergy/AdvReac Type Severity Reaction Status Date / Time No Known Allergies Allergy Verified 05/29/18 11:14 Surgical - Exam Vital Signs Temp Pulse Resp BP Pulse Ox 98.8 F 79 16 176/86 97 05/28/18 18:57 05/28/18 18:57 05/28/18 18:57 05/28/18 18:57 05/28/18 18:57 - General well developed, no distress - Eyes PERRL - ENT normal pinna - Neck no masses - Respiratory normal expansion - Cardiovascular Rhythm: regular - Abdomen Right lower quadrant tenderness. Abdomen: soft Results - Labs 05/28/18 19:44 05/28/18 19:44 Abnormal Lab Results - Last 24 Hours (Table) 05/28/18 05/28/18 05/28/18 Range/Units 19:44 19:44 19:44 WBC 11.0 H (3.8-10.6) k/uL Total Bilirubin 2.5 H (0.2-1.3) mg/dL Urine Protein Trace H (Negative) Urine Ketones Trace H (Negative) Diabetes panel 05/28/18 Range/Units 19:44 Sodium 140 (137-145) mmol/L Potassium 4.3 (3.5-5.1) mmol/L Chloride 105 (98-107) mmol/L Carbon Dioxide 27 (22-30) mmol/L BUN 14 (9-20) mg/dL Creatinine 0.98 (0.66-1.25) mg/dL Glucose 87 (74-99) mg/dL Calcium 9.3 (8.4-10.2) mg/dL AST 52 (17-59) U/L ALT 53 (21-72) U/L Alkaline Phosphatase 61 (38-126) U/L Total Protein 7.1 (6.3-8.2) g/dL Albumin 4.4 (3.5-5.0) g/dL Calcium panel 05/28/18 Range/Units 19:44 Calcium 9.3 (8.4-10.2) mg/dL Albumin 4.4 (3.5-5.0) g/dL Pituitary panel 05/28/18 Range/Units 19:44 Sodium 140 (137-145) mmol/L Potassium 4.3 (3.5-5.1) mmol/L Chloride 105 (98-107) mmol/L Carbon Dioxide 27 (22-30) mmol/L BUN 14 (9-20) mg/dL Creatinine 0.98 (0.66-1.25) mg/dL Glucose 87 (74-99) mg/dL Calcium 9.3 (8.4-10.2) mg/dL Adrenal panel 05/28/18 Range/Units 19:44 Sodium 140 (137-145) mmol/L Potassium 4.3 (3.5-5.1) mmol/L Chloride 105 (98-107) mmol/L Carbon Dioxide 27 (22-30) mmol/L BUN 14 (9-20) mg/dL Creatinine 0.98 (0.66-1.25) mg/dL Glucose 87 (74-99) mg/dL Calcium 9.3 (8.4-10.2) mg/dL Total Bilirubin 2.5 H (0.2-1.3) mg/dL AST 52 (17-59) U/L ALT 53 (21-72) U/L Alkaline Phosphatase 61 (38-126) U/L Total Protein 7.1 (6.3-8.2) g/dL Albumin 4.4 (3.5-5.0) g/dL - Imaging CT scan - abdomen: report reviewed (Thickened appendix suggestive of appendicitis) Assessment and Plan Assessment: Appendicitis. We'll perform laparoscopic appendectomy.
[2018-05-29] MEDS ORDERED: PROPOFOL 10 MG/ML 20 ML VIAL IV ONE (12:11)
[2018-05-29] MEDS ORDERED: NEOSTIGMINE 1 MG/ML 10 ML VIAL ONE (12:11)
[2018-05-29] MEDS ORDERED: GLYCOPYRROLATE 0.2 MG/ML 2 ML VIAL ONE (12:11)
[2018-05-29] MEDS ORDERED: SUCCINYLCHOLINE CHLORIDE 100 MG/5 ML SYR IV ONE (12:11)
[2018-05-29] MEDS ORDERED: ROCURONIUM BROMIDE 10 MG/ML 10 ML VIAL IV ONE (12:11)
[2018-05-29] MEDS ORDERED: LIDOCAINE 1% INJ 10MG/ML (20 ML MDV) ONE (12:11)
[2018-05-29] MEDS ORDERED: MIDAZOLAM 2 MG/2 ML VIAL ONE (12:11)
[2018-05-29] MEDS ORDERED: fentaNYL (PF) 50 MCG/ML 2 ML AMP ONE (12:11)
[2018-05-29] MEDS ORDERED: BUPIVACAIN-EPI 0.25%-1:200,000 30 ML VIAL SQ ONE ×3 (12:13→12:36)
--- NOTE | 2018-05-29 12:54 | P.OP ---
Date of Procedure: 05/29/18 Preoperative Diagnosis: Acute appendicitis Postoperative Diagnosis: Acute appendicitis Procedure(s) Performed: Laparoscopic appendectomy Anesthesia: LATOSHA Surgeon: Jose Bauman Estimated Blood Loss (ml): 5 Pathology: other (Appendix) Condition: stable Disposition: PACU Description of Procedure: HThe patient's placed on the operating table in the supine position. The patient received general anesthesia. The abdomen was prepped and draped in the usual sterile fashion. The skin was anesthetized 1% local Xylocaine at the trocar sites. Using an 11 blade the skin was incised at the umbilicus. The umbilicus was grasped with a Kelly clamp and then a Veress needle was placed into the peritoneal cavity. Position of the Veress needle was confirmed with positive drop test. After adequate insufflation a 5 mm trocar was placed into the peritoneal cavity. The abdomen was further insufflated. And then the laparoscope was placed in the peritoneal cavity. Next a 5 mm trocar was placed in the midline suprapubic position. And then a 10 mm trocar was placed in the midline epigastric position. The patient was rotated with the right side up and in Trendelenburg. The appendix was visualized. The appendix appeared to be inflamed. The appendix was grasped and then using the Harmonic scissors the mesoappendix was divided. A PDS Endoloop was then placed around the base of the appendix. And then the appendix was divided using Harmonic scissors. The appendix was placed into an Endo Catch and brought out through the 10 mm trocar site. The abdomen was irrigated. There is no bleeding seen. The trochars withdrawn. The skin was closed interrupted 3-0 Monocryl suture. Dermabond dressing was applied. Patient was sent to recovery room in stable condition.
[2018-05-29] MEDS ORDERED: METOCLOPRAMIDE 5 MG/ML 2 ML VIAL IVP PRN (12:55)
[2018-05-29] MEDS ORDERED: HYDROcodone/APAP 5-325MG 1 EACH TAB PO PRN (12:55)
[2018-05-29] MEDS ORDERED: HYDROmorphone 0.5 MG/0.5 ML SYRINGE IVP PRN (12:55)
[2018-05-29] MEDS ORDERED: NALOXONE 0.4 MG/ML 1 ML VIAL IV PRN (12:55)
[2018-05-29] MEDS ORDERED: ACETAMINOPHEN TAB 325 MG TAB PO PRN (12:55)
[2018-05-29] MEDS ORDERED: ONDANSETRON 4 MG/2 ML VIAL IVP PRN (12:55)
[2018-05-29] MEDS ORDERED: HYDROmorphone 1 MG/ML 1 ML SYRINGE IVP ONE ×2 (13:33→13:42)
[2018-05-29] MEDS: D5-0.45% NACL WITH KCL 20MEQ/L 1,000 ML IV SCH (15:58)
[2018-05-29] MEDS: KETOROLAC 30 MG/ML 1 ML VIAL IVP SCH ×2 (16:03→20:21)
[2018-05-29] MEDS: DOCUSATE 100 MG CAP PO SCH (20:21)
[2018-05-30] MEDS ORDERED: KETOROLAC 30 MG/ML 1 ML VIAL ONE (01:26)
--- NOTE | 2018-05-30 03:13 | CONS ---
CONSULTATION DATE OF CONSULTATION: May 29, 2018. REASON FOR CONSULTATION: Medical management requested by Dr. Bauman. CONSULTATION: This is a pleasant 28-year-old patient of Dr. Avalos out of [place]. The patient is rather healthy typically. The patient 3 days ago at night had gone to eat supper with his fiancee, 8 o'clock started having lower abdominal pain. It kind of moved around a bit and the pain continued to get severe crampy. It lasted for a good 24 hours. Patient decided to go in the following day to his family doctor. There he was seen and they felt the impression was that the patient's appendix was playing up and he was sent down here to the hospital to the ER. The patient did have a CT scan of the abdomen and pelvis that was suggestive of acute appendicitis. The patient denies any fever, chills. No nausea, vomiting. The patient was subsequently taken to the operating room and laparoscopic appendectomy was carried out. Postprocedure, earlier today, the patient has had a soft diet. Passed some flatus. No nausea, vomiting. No fever. REVIEW OF SYSTEMS: CONSTITUTIONAL: Tired. HEENT: None. RESPIRATORY: None. CARDIOVASCULAR: None. GASTROINTESTINAL as above. GENITOURINARY: None. MUSCULOSKELETAL: None. DERMATOLOGICAL, HEMATOLOGIC, LYMPHATIC: None. PSYCHIATRY: None. NEUROLOGICAL: None. PAST MEDICAL HISTORY: Abdominal wall wound near the umbilicus that is healed, scarlet fever in high school, right broken ankle. PAST SURGICAL HISTORY: Tubes in the ear as an , I and D to the umbilical wound. SOCIAL HISTORY: Lives with his firadhae, works at [employer]. Does not smoke. Alcohol occasionally. FAMILY HISTORY: Reviewed, noncontributory to presentation. HOME MEDICATIONS: 1. Multivitamin 1 tablet p.o. daily. 2. Vitamin D3 2000 p.o. daily. 3. [place]'s aspirin 81 mg a day. ALLERGIES: None. PHYSICAL EXAMINATION: VITAL SIGNS: Vital signs on presentation, temperature 98.8, pulse 79, respiration 16, blood pressure 159/79, pulse ox 97% on room air. GENERAL APPEARANCE: Well built, BMI 40.6, sitting up comfortable. EYES: Pupils equal. Conjunctivae normal. HEENT: External appearance of nose and ears normal. Oral cavity normal. NECK: JVD not raised. Mass not palpable. RESPIRATORY: Effort normal. LUNGS: Fair entry. CARDIOVASCULAR: 1st and 2nd sounds normal. No edema. ABDOMEN: Mild tenderness. Liver and spleen not palpable. No guarding or rigidity. LYMPHATICS: No lymph nodes palpable in the neck or axilla. PSYCHIATRY: Alert and oriented x3. Mood and affect normal. NEUROLOGICAL: Pupils equal. Cranial nerves grossly intact. Power and sensation grossly intact. INVESTIGATIONS: White count 11, hemoglobin 14.1, potassium 4.3, total bilirubin 2.5. CT scan of the abdomen and pelvis results as above. ASSESSMENT: 1. Acute appendicitis followed by laparoscopic appendectomy. 2. Morbid obesity BMI 40.6. 3. Leukocytosis from appendicitis. 4. Hyperbilirubinemia, asymptomatic. PLAN: The patient is on Lovenox for DVT prophylaxis. Empirically is on antibiotics and also IV fluids. Diet has been advanced. The patient should see his family doctor for weight loss measures. Otherwise doing well. Care was discussed with the patient. Questions were answered. Thank you Dr. Bauman. Copy to Dr. Avalos in [place]. MMODL / MARIZAN: [id number] /
[2018-05-30] MEDS: KETOROLAC 30 MG/ML 1 ML VIAL IVP SCH ×3 (05:24→15:07)
[2018-05-30] MEDS: PIPERACILLIN-TAZOBACTAM 3.375 GM in SODIUM CHLORIDE 0.9% 100 ML IVPB SCH ×3 (05:24→15:07)
[2018-05-30] MEDS: D5-0.45% NACL WITH KCL 20MEQ/L 1,000 ML IV SCH (05:24)
[2018-05-30] MEDS: DOCUSATE 100 MG CAP PO SCH (08:53)
[2018-05-30] MEDS ORDERED: ENOXAPARIN 40 MG/0.4 ML SYRINGE SQ SCH (09:00)
[2018-05-30 13:56] VITALS: BP 128/66; PULSE 58; RESP 18; TEMP 98
--- NOTE | 2018-05-30 15:59 | P.DS ---
Providers Date of admission: 05/28/18 21:34 Expected date of discharge: 05/30/18 Attending physician: Jose Bauman Consults: 05/29/18 12:55 Consult Physician Routine Consulting Provider: Kalen Holt Consult Reason/Comments: Medical management Do you want consulting provider notified?: Yes Primary care physician: Fercho Luevano [facility] Course: 28-year-old male who presented to the emergency room with abdominal pain. The patient was found to have appendicitis. He underwent laparoscopic appendectomy on 05/29/2018. The patient did well postoperatively and did not have any immediate consultations and has remained hemodynamically stable. He has been ambulating independently in the hallway. His pain is tolerable on oral medications. Tolerating oral diet. He denies nausea or vomiting. He was deemed stable for discharge home today. He is to follow up with Dr. Bauman in one week. DISCHARGE DIAGNOSIS: Acute appendicitis, status post laparoscopic appendectomy Leukocytosis, secondary to above Nurse practitioner note has been reviewed by physician. Signing provider agrees with the documented findings, assessment, and plan of care. Patient Condition at Discharge: Stable Plan - Discharge Summary Discharge Rx Participant: No New Discharge Prescriptions: New Docusate [Colace] 100 mg PO BID #30 capsule Levofloxacin [Levaquin] 750 mg PO DAILY #7 tab HYDROcodone/APAP 5-325MG [[place] 5-325] 1 tab PO Q6HR PRN 3 Days #12 tab PRN Reason: Pain Continue Multivitamins, Thera [Multivitamin (formulary)] 1 tab PO DAILY Cholecalciferol (Vitamin D3) [Vitamin D3] 2,000 mg PO DAILY Aspirin [[place] Aspirin EC] 81 mg PO DAILY Discharge Medication List Multivitamins, Thera [Multivitamin (formulary)] 1 tab PO DAILY 12/23/16 [History ] Aspirin [[place] Aspirin EC] 81 mg PO DAILY 05/28/18 [History] Cholecalciferol (Vitamin D3) [Vitamin D3] 2,000 mg PO DAILY 05/28/18 [History] Docusate [Colace] 100 mg PO BID #30 capsule 05/30/18 [Rx] HYDROcodone/APAP 5-325MG [[place] 5-325] 1 tab PO Q6HR PRN 3 Days #12 tab [Rx] Levofloxacin [Levaquin] 750 mg PO DAILY #7 tab 05/30/18 [Rx] Follow up Appointment(s)/Referral(s): Fercho Avalos MD [Primary Care Provider] - 06/01/18 2:30 pm Jose Bauman MD [STAFF PHYSICIAN] - 06/07/18 1:45 pm Patient Instructions/Handouts: Hydrocodone/Acetaminophen (By mouth), Laxative, Stool Softeners (By mouth), Levofloxacin (By mouth), Appendicitis (GEN), Laparoscopic Appendectomy (DC) Activity/Diet/Wound Care/Special Instructions: No lifting over 5 pounds for two weeks No tub baths. You may shower No driving while taking [place]
--- NOTE | 2018-05-31 00:06 | PN ---
PROGRESS NOTE DATE OF SERVICE: 05/30/2018. PRESENTING COMPLAINT: Abdominal pain. INTERVAL HISTORY: Patient admitted with acute appendicitis. Did undergo laparoscopic appendectomy. Doing much better this morning. Did tolerate a diet. Did pass flatus. Up and about. The patient's aunt is visiting him. Overall feeling much better. Did tolerate his breakfast well. REVIEW OF SYSTEMS: Done for constitutional, cardiovascular, GI, pulmonary; relevant findings as above. CURRENT MEDICATIONS: Reviewed. PHYSICAL EXAMINATION: Temperature 97, pulse 57, respirations 16, blood pressure 110/54, pulse ox 96 percent room air. GENERAL APPEARANCE: Sitting up in a chair, comfortable. EYES: Pupils equal. Conjunctivae normal. NECK: JVD not raised. Mass not palpable. Respiratory effort normal. LUNGS: Clear. CARDIOVASCULAR: 1st and 2nd sounds normal. No edema. ABDOMEN: Minimal tenderness, soft. Liver spleen not palpable. PSYCHIATRY: Alert and oriented x3. Mood and affect normal. INVESTIGATIONS: No blood work from today. ASSESSMENT: 1. Acute appendicitis followed by laparoscopic appendectomy. 2. Morbid obesity BMI 40.6. 3. Leukocytosis from appendicitis. 4. Hyperbilirubinemia, asymptomatic. PLAN: Patient doing well. If discharged home, should follow up with his family doctor. Discussed with him. Antibiotics per Dr. Bauman. MMODL / IJN: [id number] /
== END 2018-05-30 16:30 | disposition home or self-care (01) ==
LOC: EC 18:28 → 3NMEDONC 21:34
PROVIDERS: ADMIT Surgery; ATTEND Surgery
DX: K37 Unspecified appendicitis (principal); E80.6 Other disorders of bilirubin metabolism; Z68.41 Body mass index [BMI] 40.0-44.9, adult; E66.01 Morbid (severe) obesity due to excess calories; Z79.82 Long term (current) use of aspirin; Z87.2 Personal history of diseases of the skin and subcutaneous tissue; Z86.19 Personal history of other infectious and parasitic diseases
CPT/HCPCS: 44970; 96361; 96374; 96375; 99285; 36415; 88304; 80053; 82150; 83690; 85025; 81003; 74177; G0378 ×3; J2543 ×3; J2250; J2270 ×2; J1644; J1100; J2710; J2405 ×2; J2001; J3010; J1885 ×2; J1170; J0330; J2704; Q9967

== ENCOUNTER → 2023-08-23 | Outpatient (CLI) | payer BC ==
--- NOTE | 2023-08-23 17:27 | XR ---
EXAMINATION TYPE: XR lumbosacral spine min 4V DATE OF EXAM: 08/23/2023 COMPARISON: None HISTORY: Sciatic nerve TECHNIQUE: 5 view lumbar spine FINDINGS: There are 5 lumbar-type vertebral bodies. Pedicles are intact. Disc heights are preserved. Vertebral body heights are preserved. Alignment is normal. No definite spondylolytic defects are evid ent. There may be some change at the pars of L5 complete dissection however is not identified IMPRESSION: 1. No acute osseous abnormality lumbar spine
--- NOTE | 2023-08-23 17:28 | XR ---
EXAMINATION TYPE: XR pelvis AP view DATE OF EXAM: 08/23/2023 COMPARISON: None HISTORY: Sciatic nerve pain right TECHNIQUE: AP pelvis FINDINGS: Sacroiliac joints are normal. Symphysis pubis are normal. Femoral heads articulate with the acetabulum. No acute fractures are evident. All gas pattern is normal. IMPRESSION: 1. Normal AP pelvis
== END | disposition home or self-care (01) ==
LOC: RADXRMAIN 15:40
PROVIDERS: ATTEND Family Medicine
DX: Z00.00 Encounter for general adult medical examination without abnormal findings (principal); G57.01 Lesion of sciatic nerve, right lower limb
CPT/HCPCS: 72110; 72170

== ENCOUNTER → 2023-09-06 | Outpatient (CLI) | payer BC ==
--- NOTE | 2023-09-06 18:56 | US ---
EXAMINATION TYPE: US abdomen complete DATE OF EXAM: 09/06/2023 COMPARISON: CT 05/28/2018 CLINICAL INDICATION: Male, 33 years old with history of R17 UNSPECIFIED JAUNDICE; Patient states elev ated bilirubin levels. NO abdominal pain. Hx of appendectomy and surgery of umbilical abscess TECHNIQUE: Multiple sonographic images of the abdomen are obtained. FINDINGS: EXAM MEASUREMENTS: Liver Length: 15.8 cm Gallbladder Wall: 0.2 cm CBD: 0.3 cm Spleen: 11.3 cm Right Kidney: 11.5 x 4.1 x 5.7 cm Left Kidney: 11.5 x 5.5 cm WAXER FLOOR NOTES: Pancreas: wnl as best seen today Liver: Slightly increased echogenicity compared to kidney. Otherwise, appears WNL. Gallbladder: No distinct stones seen. Wall WNL Evidence for sonographic Tate's sign: No CBD: wnl Spleen: wnl Right Kidney: No hydronephrosis or masses seen as best visualized today Left Kidney: No hydronephrosis or masses seen as best visualized today Upper IVC: wnl Abd Aorta: wnl. Portion of mid obscured by gas. IMPRESSION: 1. No acute abdomen ultrasound abnormality.
== END | disposition home or self-care (01) ==
LOC: RADUSWWP 09:42
PROVIDERS: ATTEND Family Medicine
DX: R17 Unspecified jaundice (principal)
CPT/HCPCS: 76700